=== PATIENT | male | born 1975 ===

== ENCOUNTER 2016-09-10 11:36 | Emergency (ER) | payer OTHER ==
--- NOTE | 2016-09-10 16:41 | XRay Report ---
Right fifth finger: There is a thin metallic pin which is traversing the length of the distal phalanx. A portion of the hand is externalized through the tip of the finger. None of the pin projects outside the bone and therefore appears to lie within the bone although the bone itself does not appear fractured. The soft tissues do not appear significantly affected. Of additional note is that on the AP view including the remainder of the hand the fourth and fifth metacarpals appear somewhat shortened and there is a mild ulnar deviation of the phalanx at the fourth PIP joint. Impression: Foreign body pin through the fifth digit as described.
--- NOTE | 2016-09-10 16:56 | Emergency Department Report ---
ED General Adult HPI - General Chief complaint: Extremity Injury, Lower Stated complaint: RT FINGER INJURY Source: patient Mode of arrival: Ambulatory Limitations: No Limitations - History of Present Illness Initial comments: 41-year-old male comes in for 1 and a pin removed out of his right fifth digit. Patient reports that he had a tendon repair in [place] and they placed the pin in his left 5th digit. He is requesting for the pin to be removed. He denies any pain fever chills no nausea no vomiting. - Related Data Allergies Allergy/AdvReac Type Severity Reaction Status Date / Time ampicillin Allergy Swelling Verified 09/10/16 12:41 ED Review of Systems ROS: Stated complaint: RT FINGER INJURY Other details as noted in HPI Comment: All other systems reviewed and negative ED Past Medical Hx - Past Medical History Additional medical history: right hand 5th digit,torn ligement - Surgical History Additional Surgical History: finger surgery with pin placement - Social History Smoking Status: Current Every Day Smoker Substance Use Type: None ED Physical Exam - General Limitations: No Limitations General appearance: alert, in no apparent distress - Head Head exam: Present: atraumatic, normocephalic - Expanded Upper Extremity Exam Right Hand Wrist exam: Present: other (2.5 cm pin and a curved position located in the right fifth digit is no swelling disorder erythematous is no discharge from it. No tenderness to palpate) Vascular: Present: normal capillary refill. Absent: vascular compromise, Pallo - Neurological Exam Neurological exam: Present: alert, oriented X3 ED Course Vital Signs 09/10/16 12:36 Temperature 98.4 F Pulse Rate 86 Respiratory 18 Rate Blood Pressure 141/88 O2 Sat by Pulse 100 Oximetry ED Medical Decision Making - Radiology Data Radiology results: image reviewed Right fifth finger: There is a thin metallic pin which is traversing the length of the distal phalanx. A portion of the hand is externalized through the tip of the finger. None of the pin projects outside the bone and therefore appears to lie within the bone although the bone itself does not appear fractured. The soft tissues do not appear significantly affected. Of additional note is that on the AP view including the remainder of the hand the fourth and fifth metacarpals appear somewhat shortened and there is a mild ulnar deviation of the phalanx at the fourth PIP joint. Impression: Foreign body pin through the fifth digit as described. - Medical Decision Making Patient's been evaluated by this provider in fast track. X-ray was ordered right hand. Discussed with Dr. Perez about removal of the foreign object he reports that patient will need to follow with the orthopedic this is not something that we can handle here at the emergency room. Critical care attestation.: If time is entered above; I have spent that time in minutes in the direct care of this critically ill patient, excluding procedure time. ED Disposition Clinical Impression: Foreign body (FB) in soft tissue Disposition: DISCHARGED TO HOME OR SELFCARE Is pt being admited?: No Does the pt Need Aspirin: No Condition: Stable Instructions: Soft Tissue Foreign Body (ED) Additional Instructions: He need to follow up with the orthopedic that we can refer you to or to their orthopedic surgeon that placed the patient in your finger. Referrals: PRIMARY CAREMD [Primary Care Provider] - 3-5 Days FARZANA ROTH MD [Staff Physician] - 3-5 Days SWATHI LOW MD [Staff Physician] - 3-5 Days Forms: Work/School Release Form(ED)
[2016-09-10 17:26] VITALS: BP 137/94
== END 2016-09-10 17:26 | disposition home or self-care (01) ==
LOC: ED 11:36
DX: S60.456A Superficial foreign body of right little finger, initial encounter (principal); F17.200 Nicotine dependence, unspecified, uncomplicated; Z88.1 Allergy status to other antibiotic agents; W45.8XXA Other foreign body or object entering through skin, initial encounter; Y93.89 Activity, other specified; Y99.8 Other external cause status; Y92.89 Other specified places as the place of occurrence of the external cause
CPT/HCPCS: 99283